=== PATIENT | female | born 1990 | race Caucasian/White ===

== ENCOUNTER 2023-02-24 11:57 | Observation (INO) ==
[2023-02-24] MEDS ORDERED: 0.9 % SODIUM CHLORIDE 1,000 ML IV ONE (12:31)
[2023-02-24 13:34] LABS: POC Calcium, Ionized 1.1 (1.16-1.32); POC Creatinine 0.7 (0.6-1.2); POC Potassium 3.3 (3.3-5.1)
[2023-02-24] MEDS ORDERED: CLINDAMYCIN 150 MG CAPSULE PO ONE (14:13)
[2023-02-24] MEDS ORDERED: PIPERACILLIN SODIUM/TAZOBACTAM 3.375 GM in DEXTROSE 5% IN WATER 50 ML IV ONE (14:13)
[2023-02-24] MEDS ORDERED: VANCOMYCIN 1,500 MG in 0.9 % SODIUM CHLORIDE 500 ML IV ONE (14:13)
[2023-02-24 15:37] LABS: Basophils # (Auto) 0.01 K/mcL (0.00-0.30); Basophils % (Auto) 0.1 % (0.0-2.0); Eosinophils # (Auto) 0.01 K/mcL (0.00-0.70); Eosinophils % (Auto) 0.1 % (0.0-7.0); Hematocrit 34.9 % (34.1-44.9); Hemoglobin 11.2 g/dL (11.2-15.7); Lymphocytes % (Auto) 4.9 % (15.5-49.0); Mean Cell Volume 96.7 fL (80.0-100.0); Mean Corpuscular HGB Conc 32.1 g/dL (31.0-36.0); Mean Platelet Volume 9.7 fL (8.8-12.5); Monocytes # (Auto) 0.51 K/mcL (0.10-0.90); Platelet Count 153 K/mcL (140-440); RBC 3.61 M/mcL (3.59-5.38); Red Cell Distribution Width 13.2 % (11.5-14.5); WBC 10.2 K/mcL (4.5-11.0)
[2023-02-24 15:43] LABS: HCG,Serum Negative
[2023-02-24] MEDS ORDERED: KETOROLAC 30 MG/ML VIAL IV ONE (16:32)
[2023-02-24] MEDS ORDERED: ACETAMINOPHEN 325 MG TABLET PO PRN (16:32)
[2023-02-24] MEDS ORDERED: IBUPROFEN 600 MG TABLET PO PRN (16:32)
[2023-02-24] MEDS ORDERED: ONDANSETRON 4 MG/2 ML VIAL IV PRN (16:32)
[2023-02-24] MEDS ORDERED: HYDROmorphone 1 MG/ML SYRINGE IV ONE (17:54)
[2023-02-24] MEDS ORDERED: VANCOMYCIN PER PHARMACY IV SCH (18:20)
[2023-02-24] MEDS ORDERED: 0.9 % SODIUM CHLORIDE 1,000 ML IV SCH (18:20)
[2023-02-24] MEDS ORDERED: OMEPRAZOLE 20 MG CAPSULE PO PRN (19:09)
[2023-02-24] MEDS: SENNOSIDES 1 TABLET PO SCH (20:26)
[2023-02-24] MEDS: HYDROcodone/APAP 5/325MG TABLET PO PRN (20:26)
[2023-02-24] MEDS: HYDROXYCHLOROQUINE 200 MG TABLET PO SCH (20:26)
[2023-02-24] MEDS: DOCUSATE SODIUM 100 MG CAPSULE PO SCH (20:26)
[2023-02-24] MEDS: PREGABALIN 25 MG CAPSULE PO SCH (20:26)
[2023-02-24] MEDS: cefTRIAXone 2 GM VIAL ONE ×2 (20:34→21:20)
[2023-02-24] MEDS: ENOXAPARIN 40 MG/0.4 ML SYRINGE SQ SCH (20:45)
[2023-02-24] MEDS: cefTRIAXone 2 GM in DEXTROSE 5% IN WATER 50 ML IV SCH ×2 (21:20→21:21)
[2023-02-24] MEDS: 0.9 % SODIUM CHLORIDE 10 ML SYRINGE IV SCH (21:22)
[2023-02-25] MEDS: VANCOMYCIN 1,500 MG in 0.9 % SODIUM CHLORIDE 500 ML IV SCH ×3 (00:47→13:42)
[2023-02-25] MEDS: HYDROcodone/APAP 5/325MG TABLET PO PRN (05:02)
[2023-02-25] MEDS: 0.9 % SODIUM CHLORIDE 10 ML SYRINGE IV SCH ×3 (07:06→21:02)
[2023-02-25 07:15] LABS: ALT/SGPT 12 U/L (<40); AST/SGOT 13 U/L (<32); Alkaline Phosphatase 68 U/L (39-117); Bilirubin,Direct 0.4 mg/dL (<0.3); Bilirubin,Total 0.6 mg/dL (0.1-1.0); Blood Urea Nitrogen 11 mg/dL (6-20); Carbon Dioxide 25 mmol/L (22-30); Chloride 99 mmol/L (96-108); Globulin 3.1 gm/dL (2.2-3.7); Glomerular Filtration Rate 115; Glucose 107 mg/dL (70-105); Lactate Dehydrogenase 167 U/L (135-225); Phosphorous 1.5 mg/dL (2.5-4.5); Triglycerides 162 mg/dL (<150); Uric Acid 5.3 mg/dL (2.5-8.0)
[2023-02-25 07:17] LABS: Basophils # (Auto) 0.01 K/mcL (0.00-0.30); Basophils % (Auto) 0.1 % (0.0-2.0); Eosinophils # (Auto) 0.02 K/mcL (0.00-0.70); Eosinophils % (Auto) 0.2 % (0.0-7.0); Hematocrit 29.9 % (34.1-44.9); Hemoglobin 9.5 g/dL (11.2-15.7); Lymphocytes # (Auto) 0.71 K/mcL (1.50-4.80); Lymphocytes % (Auto) 6.7 % (15.5-49.0); Mean Cell Volume 97.1 fL (80.0-100.0); Mean Corpuscular HGB Conc 31.8 g/dL (31.0-36.0); Mean Platelet Volume 9.7 fL (8.8-12.5); Monocytes # (Auto) 0.78 K/mcL (0.10-0.90); Monocytes % (Auto) 7.4 % (1.0-12.0); Neutrophils % (Auto) 84.5 % (38.0-78.0); Platelet Count 146 K/mcL (140-440); RBC 3.08 M/mcL (3.59-5.38); Red Cell Distribution Width 13.2 % (11.5-14.5); WBC 10.5 K/mcL (4.5-11.0)
[2023-02-25] MEDS ORDERED: cefTRIAXone 2 GM VIAL ONE (08:42)
[2023-02-25] MEDS: NEUTRA PHOS 1 PACKET PO SCH ×2 (08:51→20:58)
[2023-02-25] MEDS: DOCUSATE SODIUM 100 MG CAPSULE PO SCH ×2 (08:52→21:00)
[2023-02-25] MEDS: buPROPion 150 MG TAB.XL.24H PO SCH (08:52)
[2023-02-25] MEDS: METOPROLOL SUCCINATE 25 MG TAB.XL.24H PO SCH (08:53)
[2023-02-25] MEDS: HYDROXYCHLOROQUINE 200 MG TABLET PO SCH ×2 (08:54→21:00)
[2023-02-25] MEDS: PREGABALIN 25 MG CAPSULE PO SCH ×2 (08:54→21:00)
[2023-02-25] MEDS: ENOXAPARIN 40 MG/0.4 ML SYRINGE SQ SCH ×2 (08:54→21:01)
[2023-02-25] MEDS: cefTRIAXone 2 GM in DEXTROSE 5% IN WATER 50 ML IV SCH (09:05)
[2023-02-25 09:14] LABS: Estimated Average Glucose(eAG) 114 mg/dL; Hemoglobin A1C 5.6 % Hgb (4.0-6.0)
[2023-02-25 12:54] LABS: Hematocrit 28.9 % (34.1-44.9); Hemoglobin 9.5 g/dL (11.2-15.7)
[2023-02-25] MEDS: POTASSIUM CHLORIDE 20 MEQ TABLET PO SCH (20:59)
[2023-02-25] MEDS: SENNOSIDES 1 TABLET PO SCH (20:59)
[2023-02-26 06:42] LABS: Basophils # (Auto) 0 K/mcL (0.00-0.30); Basophils % (Auto) 0 % (0.0-2.0); Eosinophils # (Auto) 0.05 K/mcL (0.00-0.70); Eosinophils % (Auto) 0.7 % (0.0-7.0); Hematocrit 27.6 % (34.1-44.9); Hemoglobin 8.9 g/dL (11.2-15.7); Lymphocytes # (Auto) 0.93 K/mcL (1.50-4.80); Lymphocytes % (Auto) 12.9 % (15.5-49.0); Mean Cell Volume 95.5 fL (80.0-100.0); Mean Corpuscular HGB Conc 32.2 g/dL (31.0-36.0); Mean Platelet Volume 10.1 fL (8.8-12.5); Monocytes # (Auto) 0.79 K/mcL (0.10-0.90); Platelet Count 162 K/mcL (140-440); RBC 2.89 M/mcL (3.59-5.38); Red Cell Distribution Width 12.9 % (11.5-14.5); WBC 7.2 K/mcL (4.5-11.0)
[2023-02-26 07:13] LABS: ALT/SGPT 7 U/L (<40); AST/SGOT 10 U/L (<32); Albumin 2.8 gm/dL (3.2-5.2); Albumin/Globulin Ratio 0.9 (1.0-2.3); Alkaline Phosphatase 68 U/L (39-117); Bilirubin,Total 0.5 mg/dL (0.1-1.0); Blood Urea Nitrogen 8 mg/dL (6-20); Calcium 8.1 mg/dL (8.6-10.4); Carbon Dioxide 25 mmol/L (22-30); Chloride 102 mmol/L (96-108); Glomerular Filtration Rate 121; Glucose 92 mg/dL (70-105)
[2023-02-26] MEDS ORDERED: LEVOTHYROXINE 50 MCG TABLET PO SCH (07:30)
[2023-02-26] MEDS: 0.9 % SODIUM CHLORIDE 10 ML SYRINGE IV SCH (08:54)
[2023-02-26] MEDS ORDERED: HYDROCHLOROTHIAZIDE 25 MG TABLET PO SCH (09:00)
[2023-02-26] MEDS ORDERED: Tacrolimus 0.1 % ointment TOPICAL SCH (09:00)
[2023-02-26] MEDS ORDERED: MULTIVIT,THER IRON,CA,FA & MIN 1 TABLET PO SCH (09:00)
[2023-02-26] MEDS ORDERED: VITAMIN D3 25 MCG TABLET PO SCH (09:00)
[2023-02-26] MEDS ORDERED: VITAMIN B COMPLEX 1 CAPSULE PO SCH (09:00)
[2023-02-26] MEDS ORDERED: METOPROLOL SUCCINATE 25 MG TAB.XL.24H PO SCH (09:00)
[2023-02-26] MEDS: METOPROLOL SUCCINATE 25 MG TAB.XL.24H PO SCH (09:02)
[2023-02-26] MEDS: POTASSIUM CHLORIDE 20 MEQ TABLET PO SCH (09:02)
[2023-02-26] MEDS: buPROPion 150 MG TAB.XL.24H PO SCH (09:02)
[2023-02-26] MEDS: PREGABALIN 25 MG CAPSULE PO SCH (09:03)
[2023-02-26] MEDS: HYDROXYCHLOROQUINE 200 MG TABLET PO SCH (09:03)
[2023-02-26] MEDS: DOCUSATE SODIUM 100 MG CAPSULE PO SCH (09:03)
[2023-02-26] MEDS: cefTRIAXone 2 GM in DEXTROSE 5% IN WATER 50 ML IV SCH (09:03)
[2023-02-26] MEDS: ENOXAPARIN 40 MG/0.4 ML SYRINGE SQ SCH (09:04)
[2023-02-26] MEDS: NEUTRA PHOS 1 PACKET PO SCH (09:04)
== END 2023-02-26 15:30 | disposition home or self-care (01) ==
LOC: ED 11:57 → MEDSUR 11:57
PROVIDERS: ADMIT Internal Medicine; ATTEND Internal Medicine